=== PATIENT | female | born 1995 | race Two or more races ===

== ENCOUNTER 2023-12-10 12:59 | Outpatient (REF) | payer OTHER, SELFPAY | END 2023-12-10 13:00 | disposition home or self-care (01) | LOC: HO.SH 12:59 | PROVIDERS: Visit Provider Internal Medicine | DX: Z01.118 Encounter for examination of ears and hearing with other abnormal findings (principal); H93.293 Other abnormal auditory perceptions, bilateral | CPT/HCPCS: 92579 ==